=== PATIENT | female | born 1975 | race Caucasian/White ===

== ENCOUNTER → 2017-02-14 | Outpatient (CLI) | payer MEDICAID ==
[~2017-02-14] MED LIST: ALBUTEROL2.5 MG/NEB INH; AMOXICOT500 MG PO; AUGMENTIN1 TA2 PO; BUDEPRION XL150 MG PO; CIPRO 250MG TA250 MG PO; CIPRO 500MG TA500 MG PO; CLONAZEPAM0.5 M1 PO; ESCITALOPRAM10 M1 PO; FLEXERIL10 MG PO; GABAPENTIN300 M1 PO; HYDROCODONE-APA1 TA1 PO; LISINOPRIL10 MG PO; NICOTINE T21 MG/24 H TD; PANTOPRAZOLE SO40 MG PO; PREDNISONE50 MG PO; PROVENTIL0.09 MG/A1 IH; PROVERA 10MG TA10 MG PO; RANITIDINE300 MG PO; ROPINIROLE HYDRO1 M1 PO; SUMATRIPTAN SU100 MG PO; TRAZODONE HCL50 MG PO; ULTRAM50 MG PO; VENTOLIN H0.09 MG/Ac IH; VITAMIN D50000 I1 PO; ZITHROMAX Z PA250 MG PO
--- NOTE | 2017-02-14 11:30 | CARDIOVASCULAR REPORT ---
"Venous Exam Indications: 782.3 Edema. IMPRESSIONS 1. There is no evidence of significant Reflux. 2. No evidence of deep or superficial vein thrombosis involving the left lower extremity Left lower extremity venous duplex evaluation. Doppler flow study including spectral analysis, color and mcfarland scale imaging. Location: Vascular laboratory. Patient status: Outpatient. Tables: Venous flow and imaging: + +-------+ + |Location |Overall|Flow properties | + +-------+ + |Left common femoral |Patent |Normal phasicity; spontaneous; | | | |normal augmentation; compressible | + +-------+ + |Left saphenofemoral junction|Patent |Compressible | + +-------+ + |Left profunda femoral |Patent |Compressible | + +-------+ + |Left femoral |Patent |Normal phasicity; spontaneous; | | | |normal augmentation; compressible | + +-------+ + |Left greater saphenous |Patent |Normal phasicity; spontaneous; | | | |normal augmentation; compressible | + +-------+ + |Left popliteal |Patent |Normal phasicity; spontaneous; | | | |normal augmentation; compressible | + +-------+ + |Left posterior tibial |Patent |Compressible | + +-------+ + |Left peroneal |Patent |Compressible | + +-------+ + |Left gastrocnemius |Patent |Compressible | + +-------+ + |Left soleal |Patent |Compressible | + +-------+ + (Report amended ) Electronically signed by: Mckinley Rubi [id number]"
== END ==
LOC: RT 11:11
DX: R60.0 Localized edema (principal); M79.662 Pain in left lower leg

== ENCOUNTER → 2017-03-05 | Outpatient (CLI) | payer MEDICAID | LOC: RT 13:41 | DX: R06.09 Other forms of dyspnea (principal) ==